=== PATIENT | female | born 2000 | race African-American/Black ===

== ENCOUNTER 2021-09-20 21:47 | Emergency (ER) | payer OTHER ==
[~2021-09-20] VITALS: Ht 154.9 cm; Wt 52.2 kg
[~2021-09-20 21:47] MED LIST: ALBUTEROL INH INH; IBUPROFEN 600600 M1 PO; NOHOMEMEDICATIONS; ZPAK PO
[2021-09-20] MEDS ORDERED: AUGMENTIN 875-1 EACH PO (23:06)
[2021-09-20 23:35] VITALS: BP 107/67
== END 2021-09-20 23:44 | disposition home or self-care (01) ==
LOC: ER 21:47
DX: S60.312A Abrasion of left thumb, initial encounter (principal); G43.909 Migraine, unspecified, not intractable, without status migrainosus; Z79.899 Other long term (current) drug therapy; Z91.018 Allergy to other foods; X97.XXXA Assault by smoke, fire and flames, initial encounter; Y04.1XXA Assault by human bite, initial encounter; Y93.89 Activity, other specified; Y92.89 Other specified places as the place of occurrence of the external cause; Y99.8 Other external cause status